=== PATIENT | female | born 1970 | race Caucasian/White ===

== ENCOUNTER 2021-09-26 21:55 | Inpatient (IN) | payer BC ==
[2021-09-26] MEDS ORDERED: Clindamycin/D5W 600 mg/50 ml Premix Bag ONE (22:30)
[2021-09-26] MEDS ORDERED: Morphine 4 MG/ML VIAL ONE (22:30)
[2021-09-26 22:36] LABS: Hemoglobin 12.9 g/dL (12.0-16.0); Mean Corpuscular HGB CONC 32.6 g/dL (32.0-36.0); Mean Corpuscular Hemoglobin 29.3 pg (27.0-31.0); Mean Platelet Volume 6.8 fL (7.4-10.4); Platelet Count 412 thou/uL (130-400); RBC Distribution Width 13.2 % (11.5-14.5); Red Blood Cell (RBC) Count 4.41 mill/uL (4.20-5.40); White Blood Cell (WBC) Count 17.9 thou/uL (4.8-10.8)
[2021-09-26 22:53] LABS: Band 19 % (5-11); Lymphocytes 8 % (21-51); MDiff Complete? YES; Neutrophil 73 % (42-75); Platelet Morphology Comment Appears Increased; RBC Morphology Normal
[2021-09-26 23:08] LABS: Albumin 3.3 g/dL (3.5-5.0)
[2021-09-26 23:09] LABS: Chloride 106 mmol/L (98-107); Potassium 3.7 mmol/L (3.5-5.1); Sodium 141 mmol/L (136-145)
[2021-09-26 23:10] LABS: Calcium 9.1 mg/dL (7.8-10.44); Glucose 161 mg/dL (70-105)
[2021-09-26 23:11] LABS: Globulin 4.2 g/dL (2.4-3.5); Protein, Total 7.5 g/dL (6.0-8.3)
[2021-09-26 23:12] LABS: Anion Gap 17 mmol/L (10-20); Bilirubin, Total 0.6 mg/dL (0.2-1.2); Carbon Dioxide 22 mmol/L (22-29)
[2021-09-26 23:13] LABS: Alkaline Phosphatase 95 U/L (40-110)
[2021-09-26 23:14] LABS: Calc. Creatinine Clearance 0 mL/min (70-130)
[2021-09-26 23:15] LABS: BUN (Urea Nitrogen) 21 mg/dL (7.0-18.7)
[2021-09-26 23:16] LABS: AST (SGOT) 21 U/L (5-34); CKMB 0.8 ng/mL (0-6.6)
[2021-09-26 23:17] LABS: ALT (SGPT) 15 U/L (8-55)
[2021-09-26] MEDS ORDERED: Midazolam HCl 2 mg/2 ml Vial ONE (23:17)
[2021-09-26] MEDS ORDERED: Lidocaine 1% w/Epinephrine 1:100K 20 ML VIAL ONE (23:17)
[2021-09-26] MEDS ORDERED: Benzocaine 20% Spray 60 ML CAN ONE (23:34)
[2021-09-27] MEDS ORDERED: Fentanyl 100 MCG/2 ML VIAL ONE (02:44)
[2021-09-27] MEDS ORDERED: Acetaminophen 650 MG Suppository PR PRN (03:02)
[2021-09-27] MEDS ORDERED: Ondansetron PF 4 MG/2 ML Vial IVP PRN (03:02)
[2021-09-27] MEDS ORDERED: Dexamethasone 10 MG/ML VIAL ONE (03:03)
[2021-09-27 03:51] LABS: Troponin I 0.033 ng/mL (< 0.028)
[2021-09-27 04:31] LABS: Anion Gap 14 mmol/L (10-20); BUN (Urea Nitrogen) 22 mg/dL (7.0-18.7); Calc. Creatinine Clearance 0 mL/min (70-130); Calcium 9.2 mg/dL (7.8-10.44); Carbon Dioxide 22 mmol/L (22-29); Chloride 105 mmol/L (98-107); Glucose 170 mg/dL (70-105); Magnesium 1.9 mg/dL (1.6-2.6); Potassium 3.6 mmol/L (3.5-5.1); Sodium 137 mmol/L (136-145)
[2021-09-27 04:45] LABS: Band 28 % (5-11); Hemoglobin 12.6 g/dL (12.0-16.0); Lymphocytes 6 % (21-51); MDiff Complete? YES; Mean Corpuscular HGB CONC 32.3 g/dL (32.0-36.0); Mean Corpuscular Hemoglobin 29.5 pg (27.0-31.0); Mean Corpuscular Volume 91.1 fL (78.0-98.0); Neutrophil 66 % (42-75); Platelet Count 416 thou/uL (130-400); Platelet Morphology Comment Appears Increased; RBC Distribution Width 13.2 % (11.5-14.5); RBC Morphology Normal; Red Blood Cell (RBC) Count 4.26 mill/uL (4.20-5.40); Toxic Granulation SLIGHT; White Blood Cell (WBC) Count 14.3 thou/uL (4.8-10.8)
[2021-09-27 04:51] LABS: Troponin I 0.033 ng/mL (< 0.028)
[2021-09-27] MEDS ORDERED: Morphine 4 MG/ML VIAL SLOW IVP PRN (05:32)
[2021-09-27] MEDS: Clindamycin/D5W 600 MG in Premix Bag 1 BAG IVPB SCH ×4 (05:34→22:22)
[2021-09-27 06:01] VITALS: BMI 41.5
[2021-09-27] MEDS: Metoprolol Tartrate 25 MG TAB PO SCH ×2 (09:41→20:54)
[2021-09-27] MEDS ORDERED: Iopamidol-370 76% 500 ML 1 ML ONE (10:23)
[2021-09-27] MEDS: Diltiazem HCl 125 MG in Premix Bag 1 BAG IVPB SCH ×2 (10:36→22:22)
[2021-09-27 16:05] LABS: SARS-CoV-2 PCR by NAA Not Detected (NotDetected)
[2021-09-28 04:06] LABS: #Lymphocytes 2.3 thou/uL (1.20-3.40); #Monocytes 0.7 thou/uL (0.11-0.59); #Neutrophils 14.7 thou/uL (1.40-6.50); %Basophils 0.1 % (0.0-1.0); %Lymphocytes 13.1 % (21.0-51.0); %Monocytes 4.1 % (0.0-10.0); %Neutrophils 82.7 % (42.0-75.0); Hemoglobin 11.6 g/dL (12.0-16.0); Mean Corpuscular HGB CONC 32.9 g/dL (32.0-36.0); Mean Corpuscular Hemoglobin 30.1 pg (27.0-31.0); Mean Corpuscular Volume 91.4 fL (78.0-98.0); Mean Platelet Volume 7.1 fL (7.4-10.4); Platelet Count 408 thou/uL (130-400); RBC Distribution Width 13.3 % (11.5-14.5); Red Blood Cell (RBC) Count 3.84 mill/uL (4.20-5.40); White Blood Cell (WBC) Count 17.8 thou/uL (4.8-10.8)
[2021-09-28 04:30] LABS: Anion Gap 12 mmol/L (10-20); BUN (Urea Nitrogen) 32 mg/dL (7.0-18.7); Calc. Creatinine Clearance 148 mL/min (70-130); Calcium 9.5 mg/dL (7.8-10.44); Carbon Dioxide 26 mmol/L (22-29); Chloride 104 mmol/L (98-107); Glucose 148 mg/dL (70-105); Magnesium 2.1 mg/dL (1.6-2.6); Potassium 3.7 mmol/L (3.5-5.1); Sodium 138 mmol/L (136-145)
[2021-09-28] MEDS: Clindamycin/D5W 600 MG in Premix Bag 1 BAG IVPB SCH ×4 (05:30→22:32)
[2021-09-28] MEDS: Gabapentin 300 MG CAP PO SCH (08:29)
[2021-09-28] MEDS: Hydrochlorothiazide 25 MG TAB PO SCH (08:29)
[2021-09-28] MEDS: Metoprolol Tartrate 25 MG TAB PO SCH ×2 (08:29→20:04)
[2021-09-28] MEDS ORDERED: Enoxaparin Sodium 40 MG/0.4 ML SYRINGE SC SCH (09:00)
[2021-09-28] MEDS ORDERED: Enoxaparin Sodium 80 MG/0.8 ML SYRINGE SC SCH (13:45)
[2021-09-28] MEDS: Enoxaparin Sodium 120 MG/0.8 ML SYRINGE SC SCH (20:04)
[2021-09-29 04:52] LABS: #Lymphocytes 4.5 thou/uL (1.20-3.40); #Monocytes 0.7 thou/uL (0.11-0.59); #Neutrophils 7.9 thou/uL (1.40-6.50); %Basophils 0.1 % (0.0-1.0); %Eosinophils 0.3 % (0.0-10.0); %Lymphocytes 34.4 % (21.0-51.0); %Neutrophils 60.2 % (42.0-75.0); Mean Corpuscular HGB CONC 32.3 g/dL (32.0-36.0); Mean Corpuscular Hemoglobin 29.6 pg (27.0-31.0); Mean Corpuscular Volume 91.4 fL (78.0-98.0); Mean Platelet Volume 7.3 fL (7.4-10.4); Platelet Count 412 thou/uL (130-400); RBC Distribution Width 13.3 % (11.5-14.5); Red Blood Cell (RBC) Count 4.06 mill/uL (4.20-5.40); White Blood Cell (WBC) Count 13.1 thou/uL (4.8-10.8)
[2021-09-29] MEDS: Clindamycin/D5W 600 MG in Premix Bag 1 BAG IVPB SCH ×4 (04:57→23:27)
[2021-09-29 05:27] LABS: Anion Gap 12 mmol/L (10-20); BUN (Urea Nitrogen) 25 mg/dL (7.0-18.7); Calc. Creatinine Clearance 155 mL/min (70-130); Calcium 8.7 mg/dL (7.8-10.44); Carbon Dioxide 27 mmol/L (22-29); Chloride 102 mmol/L (98-107); Glucose 112 mg/dL (70-105); Potassium 3.6 mmol/L (3.5-5.1); Sodium 137 mmol/L (136-145)
[2021-09-29] MEDS: Hydrochlorothiazide 25 MG TAB PO SCH (10:04)
[2021-09-29] MEDS: Gabapentin 300 MG CAP PO SCH (10:04)
[2021-09-29] MEDS: Metoprolol Tartrate 25 MG TAB PO SCH ×2 (10:04→20:34)
[2021-09-29] MEDS: Enoxaparin Sodium 120 MG/0.8 ML SYRINGE SC SCH ×2 (10:05→20:34)
[2021-09-30] MEDS: Pepto Bismol Chew TAB PO PRN ×3 (00:18→09:48)
[2021-09-30] MEDS: Clindamycin/D5W 600 MG in Premix Bag 1 BAG IVPB SCH ×2 (05:28→09:47)
[2021-09-30] MEDS: Enoxaparin Sodium 120 MG/0.8 ML SYRINGE SC SCH (09:47)
[2021-09-30] MEDS: Gabapentin 300 MG CAP PO SCH (09:47)
[2021-09-30] MEDS: Metoprolol Tartrate 25 MG TAB PO SCH (09:47)
[2021-09-30] MEDS: Hydrochlorothiazide 25 MG TAB PO SCH (09:47)
[2021-09-30 16:03] VITALS: BP 126/91; TEMP 97.8
== END 2021-09-30 17:30 | disposition home or self-care (01) | DRG 854 ==
LOC: ERS 21:55 → CCU 09-27 03:06 → 2NO 09-28 22:31
PROVIDERS: ADMIT Internal Medicine; ATTEND Emergency Medicine
PROC: 0C9P0ZZ Drainage of Tonsils, Open Approach (ICD-10-PCS; principal; 2021-09-27)
PROC: 3E03329 Introduction of Other Anti-infective into Peripheral Vein, Percutaneous Approach (ICD-10-PCS; 2021-09-27)
DX: A41.9 Sepsis, unspecified organism (principal); J36 Peritonsillar abscess; Z68.41 Body mass index [BMI] 40.0-44.9, adult; Z20.822 Contact with and (suspected) exposure to COVID-19; I11.0 Hypertensive heart disease with heart failure; I50.9 Heart failure, unspecified; E78.5 Hyperlipidemia, unspecified; J45.909 Unspecified asthma, uncomplicated; G62.9 Polyneuropathy, unspecified; E66.9 Obesity, unspecified; I48.91 Unspecified atrial fibrillation; Z88.0 Allergy status to penicillin; Z88.1 Allergy status to other antibiotic agents; Z79.899 Other long term (current) drug therapy; Z98.51 Tubal ligation status
CPT/HCPCS: 36415; 70491; 71045; 80048; 80053; 82553; 83735; 84443; 84484; 85025; 87040; 87070; 87077; 87205; 93005; 93306; 94760; J1100; J1650; J2250; J2270; J3010; J3490; Q9967; U0003; U0005